=== PATIENT | male | born 1985 | race Caucasian/White ===

== ENCOUNTER → 2018-10-07 | Outpatient (CLI) | payer SELFPAY ==
[~2018-10-07] MED LIST: CRUTCH4 USE; CYCL10 PO; HYDACE5 PO; LORA1 PO; NEXIUM; PRAHYD1AE TOP
== END | disposition home or self-care (01) ==
LOC: LAB 08:25 → LAB SHORT 08:25
DX: Z48.816 Encounter for surgical aftercare following surgery on the genitourinary system (principal); Z98.52 Vasectomy status

== ENCOUNTER 2021-01-16 09:17 | Emergency (ER) | payer OTHER, BC ==
[~2021-01-16] VITALS: Ht 172.7 cm; Wt 131.5 kg
[2021-01-16] MEDS ORDERED: Nexium40 MG PO (09:38)
[2021-01-16] MEDS ORDERED: FLUOXETINE HCL20 M1 PO (09:38)
[2021-01-16] MEDS ORDERED: ZYRTEC10 M1 PO (09:38)
[2021-01-16] MEDS ORDERED: IBU800 MG PO (09:38)
[2021-01-16] MEDS ORDERED: KETO10 PO (11:26)
== END 2021-01-16 11:36 | disposition home or self-care (01) ==
LOC: ER 09:17
DX: R07.81 Pleurodynia (principal); Z79.899 Other long term (current) drug therapy
CPT/HCPCS: 71101; 96372; 99283-25; J1885

== ENCOUNTER 2022-03-25 14:57 | Emergency (ER) | payer OTHER ==
[~2022-03-25] VITALS: Ht 175.3 cm; Wt 136.1 kg
[~2022-03-25 14:57] MED LIST changes: +FLUOXETINE HCL20 M1 PO; +IBU800 MG PO; +KETO10 PO; +Nexium40 MG PO; +ZYRTEC10 M1 PO
== END 2022-03-25 16:22 | disposition home or self-care (01) ==
LOC: ER 14:57
DX: M54.42 Lumbago with sciatica, left side (principal); Z87.891 Personal history of nicotine dependence; Z79.899 Other long term (current) drug therapy; W11.XXXA Fall on and from ladder, initial encounter
CPT/HCPCS: 72100; 72220; 99283-25; A9270

== ENCOUNTER → 2025-05-30 | Outpatient (CLI) | payer OTHER ==
[2025-05-30 10:40] LABS: BASOPHILS ABSOLUTE AUTO 0.05 K/mm3 (0.00-0.23); BASOPHILS PERCENT AUTO 1 % (0-2); EOSINOPHILS ABSOLUTE AUTO 0.14 K/mm3 (0.00-0.68); EOSINOPHILS PERCENT AUTO 2 % (0-6); Hematocrit 46.5 % (37.0-53.0); Hemoglobin 15.6 g/dL (13.5-17.5); IMMATURE GRAN ABSOLUTE AUTO 0.03 K/mm3 (0.00-0.10); IMMATURE GRAN PERCENT AUTO 0 % (0-1); LYMPHOCYTES ABSOLUTE AUTO 1.97 K/mm3 (0.84-5.20); LYMPHOCYTES PERCENT AUTO 24 % (21-46); MONOCYTES ABSOLUTE AUTO 0.68 K/mm3 (0.16-1.47); MONOCYTES PERCENT AUTO 8 % (4-13); Mean Corpuscular HGB Conc 33.5 g/dL (31.5-36.5); Mean Corpuscular Volume 81 fL (80-100); NEUTROPHILS ABSOLUTE AUTO 5.21 K/mm3 (1.96-9.15); NEUTROPHILS PERCENT AUTO 65 % (41-73); NRBC ABSOLUTE 0.00 K/mm3 (0.00-0.02); NRBC Auto 0.0 /100 WBC (0.0-0.2); Platelet Count 275 K/mm3 (150-400); RDW Coefficient Variation 12.7 % (11.7-14.2); RDW Standard Deviation 36.9 fL (35.1-46.3)
[2025-05-30 10:50] LABS: Alanine Aminotransfer (ALT/SGP 38.0 U/L (12-78); Albumin, Blood 3.9 g/dL (3.4-5.0); Albumin/Globulin Ratio 1.0 (0.8-1.8); Anion Gap 15.0 mmol/L (3-11); Aspartate Aminotrans (AST/SGOT 19.0 U/L (12-37); Bilirubin, Total 0.6 mg/dL (0.1-1.0); Blood Urea Nitrogen 11.0 mg/dL (8-24); CO2, Blood 25.0 mmol/L (21-32); Calcium, Blood 9.4 mg/dL (8.5-10.1); Chloride, Blood 102.0 mmol/L (98-108); Creatinine, Blood 0.91 mg/dL (0.60-1.20); Globulin, Blood 3.9 g/dL (2.2-4.0); Glucose, Blood 98.0 mg/dL (70-99); Potassium, Blood 4.0 mmol/L (3.5-5.5); Sodium, Blood 138.0 mmol/L (136-145); Total Protein, Blood 7.8 g/dL (6.4-8.2)
== END ==
LOC: LAB 10:35 → LAB SHORT 10:35
PROVIDERS: Physician Assistant
DX: R10.9 Unspecified abdominal pain (principal)
CPT/HCPCS: 80053; 83690; 85025